=== PATIENT | female | born 1945 | race Hispanic/Latino ===

== ENCOUNTER 2017-07-19 22:44 | Emergency (ER) | payer OTHER ==
[~2017-07-19 22:44] MED LIST: ASPI-1197 PO; CARV3.12 PO; ESCI5TAB PO; MONT10TA21 PO; NITR0.4T SL; OMEP20CA10 PO; PREG150C PO; ROSU10TA27 PO; VALS40TA11 PO
[2017-07-19] MEDS ORDERED: HYDROCODONE/ACETAMINOPHEN 10/325 MG TAB ONE (23:17)
[2017-07-19] MEDS ORDERED: METOCLOPRAMIDE 10 MG TABLET ONE (23:18)
[2017-07-19] MEDS ORDERED: SODIUM CHLORIDE 0.9% 1000ML 1,000 ML IV ONE (23:18)
[2017-07-19 23:22] LABS: BASOPHILS % (AUTO) 0.6 % (0.0-5.0); EOSINOPHILS % (AUTO) 0.3 % (0.0-8.0); HEMATOCRIT 43.7 % (36-48); LYMPHOCYTES % (AUTO) 21.6 % (21.0-51.0); MEAN CORPUSCULAR HEMOGLOBIN 31.5 pg (27.0-33.0); MEAN CORPUSCULAR HGB CONC 33.7 g/dL (32.0-36.0); MEAN CORPUSCULAR VOLUME 93.6 fL (79-99); MONOCYTES % (AUTO) 5.9 % (3.0-13.0); NEUTROPHILS % (AUTO) 71.6 % (40.0-77.0); PLATELET COUNT (AUTO) 235 K/uL (130-400); RED BLOOD CELL COUNT(AUTO) 4.67 MIL/uL (4.00-5.50); RED CELL DISTRIBUTION WIDTH 14.4 % (11.0-15.5); WHITE BLOOD COUNT (AUTO) 7.7 K/uL (4.8-10.8)
[2017-07-19 23:31] LABS: CREATININE 0.8 mg/dL (0.5-1.5); POTASSIUM 3.6 mmol/L (3.5-5.1)
[2017-07-19 23:36] LABS: ALBUMIN 3.9 g/dL (3.5-5.0); BILIRUBIN,TOTAL 0.9 mg/dL (0.2-1.0); TOTAL PROTEIN, SERUM 7.4 g/dL (6.0-8.3)
[2017-07-19 23:59] LABS: APPEARANCE,URINE Clear (CLEAR); BILIRUBIN,URINE Negative (NEGATIVE); COLOR,URINE Yellow (YELLOW); GLUCOSE, URINE (UA) Negative (NEGATIVE); KETONES,URINE Negative (NEGATIVE); LEUKOCYTE ESTERASE ,URINE Negative (NEGATIVE); NITRATE,URINE Negative (NEGATIVE); OCCULT BLOOD,URINE Negative (NEGATIVE); PROTEIN,URINE Negative (NEGATIVE); UROBILINOGEN,URINE 0.2 mg/dL (0.2-1.0)
== END 2017-07-20 00:42 | disposition home or self-care (01) ==
LOC: EDH 22:44
DX: R51 Headache (principal); I25.10 Atherosclerotic heart disease of native coronary artery without angina pectoris; E78.5 Hyperlipidemia, unspecified; I10 Essential (primary) hypertension; Z91.041 Radiographic dye allergy status
CPT/HCPCS: 36415; 70450; 80053; 81003; 84484; 85025; 93005; 96360; 96361; 99285; J7030

== ENCOUNTER → 2018-09-11 | Outpatient (CLI) | payer OTHER | END | disposition home or self-care (01) | LOC: RAH 13:49 | PROVIDERS: ATTEND Nurse Practitioner Adult Health | DX: Z12.31 Encounter for screening mammogram for malignant neoplasm of breast (principal) | CPT/HCPCS: 77067 ==

== ENCOUNTER 2019-02-03 20:46 | Emergency (ER) | payer OTHER ==
[~2019-02-03 20:46] MED LIST changes: +OMEP-50 PO; -OMEP20CA10 PO; -ROSU10TA27 PO; +ROSU10TA28 PO
[2019-02-03] MEDS ORDERED: ONDANSETRON HCL 4 MG/2 ML VIAL ONE (21:10)
[2019-02-03] MEDS ORDERED: MORPHINE SULFATE 4 MG/1ML SYG ONE ×2 (21:10→22:27)
[2019-02-03 21:22] LABS: APPEARANCE,URINE Clear (CLEAR); BILIRUBIN,URINE Negative (NEGATIVE); COLOR,URINE Dark Yellow (YELLOW); GLUCOSE, URINE (UA) Negative (NEGATIVE); KETONES,URINE Trace mg/dL (NEGATIVE); LEUKOCYTE ESTERASE ,URINE Negative (NEGATIVE); NITRATE,URINE Negative (NEGATIVE); OCCULT BLOOD,URINE Negative (NEGATIVE); PROTEIN,URINE Trace mg/dL (NEGATIVE)
[2019-02-03 21:35] LABS: BACTERIA,URINE Few /HPF (None Seen); RBC,URINE 0-1 /HPF (0-1)
[2019-02-03 21:55] LABS: BASOPHILS % (AUTO) 0.5 % (0.0-5.0); EOSINOPHILS % (AUTO) 0.3 % (0.0-8.0); HEMATOCRIT 46.5 % (36-48); LYMPHOCYTES % (AUTO) 14.7 % (21.0-51.0); MEAN CORPUSCULAR HGB CONC 33.7 g/dL (32.0-36.0); MEAN CORPUSCULAR VOLUME 95.1 fL (79-99); MONOCYTES % (AUTO) 7.8 % (3.0-13.0); NEUTROPHILS % (AUTO) 76.7 % (40.0-77.0); NUCLEATED RED BLOOD CELLS 0.1 % (0.0-0.19); PLATELET COUNT (AUTO) 271 K/uL (130-400); RED BLOOD CELL COUNT(AUTO) 4.89 MIL/uL (4.00-5.50); RED CELL DISTRIBUTION WIDTH 14.2 % (11.0-15.5); WHITE BLOOD COUNT (AUTO) 10.2 K/uL (4.8-10.8)
[2019-02-03 21:59] LABS: CREATININE 0.9 mg/dL (0.5-1.5); POTASSIUM 3.7 mmol/L (3.5-5.1)
[2019-02-03 22:04] LABS: ALBUMIN 3.9 g/dL (3.5-5.0); BILIRUBIN,TOTAL 0.9 mg/dL (0.2-1.0); TOTAL PROTEIN, SERUM 7.7 g/dL (6.0-8.3)
== END 2019-02-03 23:40 | disposition home or self-care (01) ==
LOC: EDH 20:46
DX: M54.5 Low back pain (principal); G89.29 Other chronic pain; I10 Essential (primary) hypertension; I25.10 Atherosclerotic heart disease of native coronary artery without angina pectoris; E78.5 Hyperlipidemia, unspecified; Z90.49 Acquired absence of other specified parts of digestive tract; Z88.0 Allergy status to penicillin
CPT/HCPCS: 36415; 80053; 81001; 85025; 96374; 96375; 96376; 99284; J2270 ×2; J2405

== ENCOUNTER → 2021-06-23 | Outpatient (CLI) | payer MEDICARE ==
[~2021-06-23] MED LIST changes: +FLUT16H EN; +HYDR-4068 PO; +LEVO750T46 PO; +LOSA50TA2 PO; +MELO-106 PO; -OMEP-50 PO; +OMEP20CA12 PO
== END | disposition home or self-care (01) ==
LOC: SHCH 12:40
PROVIDERS: ATTEND Internal Medicine Cardiovascular Disease
DX: I87.2 Venous insufficiency (chronic) (peripheral) (principal)
CPT/HCPCS: 93970

== ENCOUNTER 2022-07-15 18:23 | Emergency (ER) | payer MEDICARE ==
[~2022-07-15] VITALS: Ht 157.5 cm; Wt 68.0 kg
[~2022-07-15 18:23] MED LIST changes: -ASPI-1197 PO; -CARV3.12 PO; -LEVO750T46 PO; +LEVO750T68 PO; +MONT-47 PO; -MONT10TA21 PO; -PREG150C PO
[2022-07-15] MEDS ORDERED: HYDROCODONE/ACETAMINOPHEN 5/325 MG TAB ONE (20:05)
[2022-07-15] MEDS ORDERED: HYDROCODONE/ACETAMINOPHEN 5/325 MG TAB PO ONE (20:30)
[2022-07-15] MEDS ORDERED: IBUP-2070 PO (21:42)
[2022-07-15 21:47] VITALS: BP 138/69
== END 2022-07-15 22:05 | disposition home or self-care (01) ==
LOC: EDH 18:23
DX: S82.892A Other fracture of left lower leg, initial encounter for closed fracture (principal); I10 Essential (primary) hypertension; E78.00 Pure hypercholesterolemia, unspecified; Z79.899 Other long term (current) drug therapy; Z90.49 Acquired absence of other specified parts of digestive tract; Z87.440 Personal history of urinary (tract) infections; Z90.710 Acquired absence of both cervix and uterus; Z98.890 Other specified postprocedural states; Z88.0 Allergy status to penicillin; Z88.5 Allergy status to narcotic agent; Z88.8 Allergy status to other drugs, medicaments and biological substances; W18.39XA Other fall on same level, initial encounter; Y93.89 Activity, other specified; Y92.89 Other specified places as the place of occurrence of the external cause; Y99.8 Other external cause status
CPT/HCPCS: 29515; 73502; 73562; 73610

== ENCOUNTER → 2023-01-16 | Outpatient (CLI) | payer MEDICARE ==
[~2023-01-16] MED LIST changes: +IBUP-2070 PO; +LOSA-418 PO; -LOSA50TA2 PO
== END | disposition home or self-care (01) ==
LOC: RAH 14:55
PROVIDERS: ATTEND Nurse Practitioner Adult Health
DX: Z12.31 Encounter for screening mammogram for malignant neoplasm of breast (principal)
CPT/HCPCS: 77067

== ENCOUNTER → 2023-04-07 | Outpatient (CLI) | payer MEDICARE | END | disposition home or self-care (01) | LOC: SHCH 11:45 | PROVIDERS: ATTEND Internal Medicine Cardiovascular Disease | DX: I87.2 Venous insufficiency (chronic) (peripheral) (principal); I87.1 Compression of vein | CPT/HCPCS: 93970 ==

== ENCOUNTER 2023-12-04 00:12 | Emergency (ER) | payer MEDICARE ==
[~2023-12-04] VITALS: Ht 167.6 cm; Wt 73.0 kg
[~2023-12-04 00:12] MED LIST changes: -ROSU10TA28 PO; +ROSU10TA72 PO
[2023-12-04] MEDS: CLINDAMYCIN 150 MG CAP PO ONE (01:12)
[2023-12-04 01:18] LABS: BASOPHILS # (AUTO) 0.03 K/uL (0.00-0.20); BASOPHILS % (AUTO) 0.4 % (0.0-5.0); EOSINOPHILS # (AUTO) 0.04 K/uL (0.00-0.70); EOSINOPHILS % (AUTO) 0.5 % (0.0-8.0); HEMATOCRIT 38.4 % (36-48); IMMATURE GRANULOCYTE ABSOLUTE 0.04 K/uL (0-1); LYMPHOCYTES # (AUTO) 1.3 K/uL (1.0-4.8); LYMPHOCYTES % (AUTO) 15.1 % (21.0-51.0); MEAN CORPUSCULAR HEMOGLOBIN 32.6 pg (27.0-33.0); MEAN CORPUSCULAR HGB CONC 33.1 g/dL (32.0-36.0); MEAN CORPUSCULAR VOLUME 98.5 fL (79-99); MONOCYTES # (AUTO) 0.8 K/uL (0.1-1.0); MONOCYTES % (AUTO) 8.8 % (3.0-13.0); NEUTROPHILS # (AUTO) 6.4 K/uL (1.8-7.7); NEUTROPHILS % (AUTO) 74.7 % (40.0-77.0); PLATELET COUNT (AUTO) 273 K/uL (130-400); RED CELL DISTRIBUTION WIDTH 14.4 % (11.0-15.5); WHITE BLOOD COUNT (AUTO) 8.6 K/uL (4.8-10.8)
[2023-12-04 01:36] LABS: BILIRUBIN,TOTAL 0.5 mg/dL (0.2-1.0); CREATININE 0.8 mg/dL (0.5-1.0); POTASSIUM 3.1 mmol/L (3.5-5.1); TOTAL PROTEIN, SERUM 6.5 g/dL (6.0-8.3)
[2023-12-04] MEDS ORDERED: IOHEXOL-350 50ML VIAL IV ONE (01:47)
[2023-12-04] MEDS ORDERED: PHARMACY COMMUNICATION MISC SCH (02:00)
[2023-12-04] MEDS: ondanSETRON 4MG INJ IVP ONE (02:04)
[2023-12-04] MEDS: morPHINE 4 MG SYG IVP ONE (02:04)
[2023-12-04 03:39] VITALS: TEMP 98.4
[2023-12-04] MEDS: LORazepam 2 MG/ML 1 ML VIAL IVP ONE (04:36)
[2023-12-04] MEDS: acetaMINOPHEN 325 MG TAB PO ONE (05:47)
[2023-12-04] MEDS ORDERED: CLINDAMYCIN 150 MG CAP PO SCH (11:30)
[2023-12-04] MEDS: ondanSETRON ODT 4MG TAB SL PRN (12:25)
[2023-12-04] MEDS: levoFLOXacin 500 MG/D5W 100 ML 100 ML IV SCH (12:25)
[2023-12-04] MEDS: CLINDAMYCIN IVPB 600MG/50ML 50 ML IV SCH (12:25)
[2023-12-04] MEDS: acetaMINOPHEN 325 MG TAB PO PRN (12:25)
[2023-12-04 13:01] VITALS: BP 137/69; PULSE 69; RESP 20; O2SAT 98
[2023-12-04] MEDS: morPHINE 4 MG SYG IVP PRN (13:44)
[2023-12-04] MEDS ORDERED: VANCOMYCIN KIT 1 GM/250 ML IV.KIT IV ONE (14:00)
[2023-12-04] MEDS ORDERED: VANCOMYCIN PROTOCOL PER PHARMACY IV SCH (14:00)
[2023-12-04] MEDS ORDERED: morPHINE 4 MG SYG IM PRN (14:00)
== END 2023-12-04 17:10 | disposition critical access hospital (66) ==
LOC: EDH 00:12
DX: M27.2 Inflammatory conditions of jaws (principal); R51.9 Headache, unspecified; I10 Essential (primary) hypertension; E78.5 Hyperlipidemia, unspecified; F32.A Depression, unspecified; Z88.0 Allergy status to penicillin; Z88.5 Allergy status to narcotic agent; Z88.8 Allergy status to other drugs, medicaments and biological substances; Z91.041 Radiographic dye allergy status; Z79.899 Other long term (current) drug therapy; Z79.2 Long term (current) use of antibiotics
CPT/HCPCS: 36415; 70487; 80053; 85025; 96365; 96368; 96375; 96376; J1956; J2060; J2270; J2405; J3490; Q9967

== ENCOUNTER → 2024-07-26 | Outpatient (CLI) | payer MEDICARE | END | disposition home or self-care (01) | LOC: SHCH 08:13 | PROVIDERS: ATTEND Internal Medicine Cardiovascular Disease | DX: I87.2 Venous insufficiency (chronic) (peripheral) (principal); I87.1 Compression of vein | CPT/HCPCS: 93970 ==

== ENCOUNTER → 2024-07-29 | Outpatient (CLI) | payer MEDICARE ==
[2024-07-29] MEDS: REGADENOSON 0.4 MG/5 ML PF SYG IVP ONE (12:22)
== END | disposition home or self-care (01) ==
LOC: SHCH 08:24
PROVIDERS: ATTEND Internal Medicine Cardiovascular Disease
DX: R06.09 Other forms of dyspnea (principal); R07.9 Chest pain, unspecified
CPT/HCPCS: 78452; 93017; J2785; A9500 ×2